=== PATIENT | male | born 1990 | race Caucasian/White ===

== ENCOUNTER 2022-02-11 03:23 | Outpatient (CLI) | payer BC, SELFPAY ==
[2022-02-11 09:40] LABS: Calculated LDL 122 mg/dL (<100); Cholesterol 189 mg/dL (<200); HDL Cholesterol 46 mg/dL (40-60); Triglyceride 105 mg/dL (<150)
== END 2022-02-11 03:24 | disposition home or self-care (01) ==
LOC: LBO 03:23
PROVIDERS: PCP Nurse Practitioner Family; Visit Provider Nurse Practitioner Family
DX: Z13.220 Encounter for screening for lipoid disorders (principal)
CPT/HCPCS: 36415; 80061

== ENCOUNTER 2025-01-24 21:22 | Outpatient (REF) | payer BC, SELFPAY ==
[2025-01-24 13:50] LABS: Calculated LDL 103 mg/dL (<100); Cholesterol 196 mg/dL (<200); HDL Cholesterol 46 mg/dL (>or=40); Triglyceride 239 mg/dL (<150)
[2025-01-24 13:53] LABS: Hemoglobin A1C 5.3 % (<5.7)
== END 2025-01-24 21:23 | disposition home or self-care (01) ==
LOC: LBN 21:22
PROVIDERS: PCP Nurse Practitioner Family; Visit Provider Nurse Practitioner Family
DX: Z13.1 Encounter for screening for diabetes mellitus (principal); Z13.220 Encounter for screening for lipoid disorders
CPT/HCPCS: 80061; 83036